=== PATIENT | female | born 1950 | race Caucasian/White ===

== ENCOUNTER 2016-12-15 17:09 | Observation (INO) | payer OTHER ==
[2016-12-15] MEDS ORDERED: LEVOTHYROXINE (17:33)
[2016-12-15] MEDS ORDERED: CHOLESTEROL MED (17:33)
[2016-12-15] MEDS ORDERED: METOPROLOL (17:33)
[2016-12-15 18:34] LABS: BASO % 0.7 % (0-2); BASO ABSOLUTE COUNT 0.1 tho/cmm (0.0-0.2); EOSINOPHIL ABSOLUTE COUNT 0.1 tho/cmm (0.0-0.7); HCT-HEMATOCRIT 43.3 % (34.0-49.0); HGB-HEMOGLOBIN 14.7 gm/dl (12.0-15.5); IMMATURE GRANULOCYTES ABSOLUTE 0.02 tho/cmm (0-0.03); IMMATURE GRANULOCYTES PERCENT 0.3 % (0-0.3); LYMPH % 15.9 % (20-45); LYMPH ABSOLUTE COUNT 1.1 tho/cmm (0.8-4.5); MCH (MEAN CORPUSCULAR HGB) 32.5 pg (28.0-32.0); MCHC MEAN CORPUSCULAR HGB CONC 33.9 % (32.0-36.0); MCV (MEAN CELL VOLUME) 95.6 fl (82.0-96.0); MEAN PLATELET VOLUME 9.6 cmc (9.4-12.4); MONO % 3.9 % (0-12); MONOCYTE ABSOLUTE COUNT 0.3 tho/cmm (0.0-1.2); NEUTROPHIL ABSOLUTE COUNT 5.6 tho/cmm (1.6-8.0); NEUTROPHIL-AUTOMATED 5.6 tho/cmm (1.6-8.0); NEUTROPHILS % 78.2 % (40-80); PLATELET COUNT 225 tho/cmm (150-450); RED BLOOD COUNT 4.53 mil/cmm (4.00-5.20); RED CELL DISTRIBUTION WIDTH 13.1 % (12.4-16.4); WHITE BLOOD COUNT 7.2 tho/cmm (4.0-10.0)
[2016-12-15 18:53] LABS: BLOOD UREA NITROGEN 20 mg/dl (6-24); CALCIUM 9.6 mg/dl (8.5-10.5); CARBON DIOXIDE-VENOUS 21 mmol/L (22-32); CHLORIDE 109 mmol/l (96-110); CREATININE 0.78 mg/dl (0.50-1.10); GLUCOSE 106 mg/dL (70-110); SODIUM 139 mmol/L (135-145); eGFR VALUE FOR BLACK >90 mL/Min
[2016-12-15 18:55] LABS: ANION GAP 13 mmol/L (0-20); POTASSIUM 4.1 mmol/L (3.7-5.1)
[2016-12-15] MEDS ORDERED: LIPITOR20 M1 PO (20:13)
[2016-12-15] MEDS ORDERED: TOPROL XL25 M1 PO (20:13)
[2016-12-15] MEDS ORDERED: SYNTHROID50 MC1 PO (20:13)
[2016-12-15] MEDS ORDERED: PROVENTIL HFA6.7 G1 INH (20:14)
[2016-12-15 20:22] LABS: URINE BILIRUBIN NEGATIVE (NEG); URINE BLOOD SMALL (NEG); URINE GLUCOSE (UA) NEGATIVE (NEG); URINE KETONE MODERATE (NEG); URINE LEUKOCYTE ESTERASE POSITIVE (NEG); URINE NITRITE NEGATIVE (NEG); URINE PROTEIN NEGATIVE (NEG); URINE SPECIFIC GRAVITY 1.015 (1.003-1.030)
[2016-12-15 20:23] LABS: URINE COLOR YELLOW
[2016-12-15 20:24] LABS: URINE APPEARANCE CLOUDY
[2016-12-15 20:32] LABS: URINE AMORPHOUS 1+; URINE BACTERIA 1+; URINE EPITHELIAL CELLS 0 /[HPF] (0-10)
[2016-12-15] MEDS ORDERED: VITAMIN D31000 UNI3 PO (23:21)
[2016-12-15] MEDS ORDERED: MULTIVITAMIN PO (23:21)
[2016-12-15] MEDS ORDERED: ASPIRIN EC81 MG PO (23:22)
[2016-12-16 05:47] LABS: TSH-THYROID STIMULATING HORM. 0.65 uIU/ml (0.40-3.80)
== END 2016-12-16 14:30 ==
LOC: EDMED 17:09 → EMR2 22:03 → CAR1 23:09
PROVIDERS: Emergency Medicine; Registered Nurse; ADMIT Family Medicine
DX: R55 Syncope and collapse (principal); E03.9 Hypothyroidism, unspecified; I10 Essential (primary) hypertension; E78.5 Hyperlipidemia, unspecified; Z79.82 Long term (current) use of aspirin; Z79.899 Other long term (current) drug therapy; Z95.0 Presence of cardiac pacemaker; Z90.89 Acquired absence of other organs; Z98.890 Other specified postprocedural states
CPT/HCPCS: G0378; G8978-GP-CJ; G8979-GP-CH; G8980-GP-CJ; J7030